=== PATIENT | female | born 1970 | race Caucasian/White ===

== ENCOUNTER → 2021-02-17 | Day surgery (SDC) | payer OTHER ==
[2021-02-10 14:50] VITALS: BMI 44.6
[2021-02-17 11:41] VITALS: BP 119/66; PULSE 80; TEMP 98.2
== END | disposition home or self-care (01) ==
LOC: JASU-SURG 04:41
PROVIDERS: ATTEND Obstetrics & Gynecology
DX: Z53.8 Procedure and treatment not carried out for other reasons (principal)
CPT/HCPCS: 81025

== ENCOUNTER 2021-03-10 05:03 | Day surgery (SDC) | payer OTHER ==
[2021-03-07 08:29] VITALS: BMI 44.9
[2021-03-10] MEDS ORDERED: ONDANSETRON 4 MG/2 ML VIAL IVPUSH PRN (13:41)
[2021-03-10] MEDS ORDERED: LACTATED RINGERS SOLUTION 1,000 ML IV SCH (13:45)
[2021-03-10] MEDS ORDERED: PROPOFOL 20 ML ONE (14:59)
[2021-03-10 17:15] VITALS: PULSE 77; TEMP 97.9
[2021-03-10 18:12] VITALS: BP 127/57
== END 2021-03-10 18:35 | disposition home or self-care (01) ==
LOC: JASU-SURG 05:03
PROVIDERS: ATTEND Obstetrics & Gynecology
PROC: 0UC98ZZ Extirpation of Matter from Uterus, Via Natural or Artificial Opening Endoscopic (ICD-10-PCS; principal; 2021-03-10 13:00)
DX: T83.89XA Other specified complication of genitourinary prosthetic devices, implants and grafts, initial encounter (principal); D25.9 Leiomyoma of uterus, unspecified
CPT/HCPCS: 81025; 88300-TC; 94760